=== PATIENT | male | born 1935 | race Caucasian/White ===

== ENCOUNTER 2021-09-23 07:40 | Inpatient (IN) | payer OTHER ==
[~2021-09-23] VITALS: Ht 172.7 cm; Wt 90.7 kg
--- NOTE | ~2021-09-23 | EMS ---
[address] [address] EMS Patient Care Report Name: EVA PHAN Room #: 434-P ADM IN M.R.#: [id number] Admission: 09/23/21 Attend Phys: Flo Dubose MD Discharge: Date of : 34 Report #: [id number] THIS REPORT FOR: //name// Report Transmitted: 09/24/2021 08:36 EMS Care Summary [place], [place]/[facility] Incident [id number] @ 09/23/2021 06:59 Incident Location [address] [address] Patient EVA PHAN Male, 86 Years 1935 Patient Address [address] [place] [address] Chief Complaint Back pain Disposition Transported No Lights/[place] Dispatch Reason Back Pain (Non-Traumatic) Transported To [facility] Narrative M42 arrived on scene to find the patient lying supine on his bed. Patient said sometime last night he back gave out and his pain had been getting worse and worse. Patient denied shortness of breath, cough, fever, or chest pain. Patient was covered in feces and urine. Patient was moved to the cot and secured with seat belts. En route to the hospital no changes in the patient condition occurred. M42 arrived on scene of the hospital and patient care was transferred to the RN. Initial Vitals @07:26P: 63,CO: 3,SpO2: 80, [address] [address] EMS Patient Care Report Name: EVA PHAN Room #: 434-P [facility] IN .R.#: [id number] Admission: 09/23/21 Attend Phys: Flo Dubose MD Discharge: Date of : 34 Report #: [id number] @07:24P: 80,SpO2: 84, @07:24P: 80,R: 16,BP: 156/76,Pain: 0/10,GCS: 15,SpO2: 87,Revised Trauma: 12, @07:28P: 77,R: 16,BP: 148/83,Pain: 0/10,GCS: 15,SpO2: 96,Revised Trauma: 12, Assessments @07:13MENTAL:No Abnormalities,SKIN:No Abnormalities,HEENT:Head/Face: No Abnormalities,Eyes: No Abnormalities,Neck/Airway: No Abnormalities,LUNG SOUNDS:General: No Abnormalities,Left Upper: No Abnormalities,Right Upper: No Abnormalities,Left Lower: No Abnormalities,Right Lower: No Abnormalities,ABDOMEN:General: No Abnormalities,Left Upper: No Abnormalities,Right Upper: No Abnormalities,Left Lower: No Abnormalities,Right Lower: No Abnormalities,PELVIS//GI:No Abnormalities,EXTREMITIES:Left Arm: No Abnormalities,Right Arm: No Abnormalities,Left Leg: No Abnormalities,Right Leg: No Abnormalities,PULSE:NEURO:No Abnormalities,@07:23MENTAL:No Abnormalities,SKIN:No Abnormalities,HEENT:Head/Face: No Abnormalities,Eyes: No Abnormalities,Neck/Airway: No Abnormalities,LUNG SOUNDS:General: No Abnormalities,Left Upper: No Abnormalities,Right Upper: No Abnormalities,Left Lower: No Abnormalities,Right Lower: No Abnormalities,ABDOMEN:General: No Abnormalities,Left Upper: No Abnormalities,Right Upper: No Abnormalities,Left Lower: No Abnormalities,Right Lower: No Abnormalities,PELVIS//GI:No Abnormalities,EXTREMITIES:Left Arm: No Abnormalities,Right Arm: No Abnormalities,Left Leg: No Abnormalities,Right Leg: No Abnormalities,PULSE:NEURO:No Abnormalities, Impression Back Pain Procedures @07:13 ALS Assessment Response: UnchangedSucceeded Timeline 06:57,Call Received 06:57,Dispatch Notified 06:59,Dispatched 07:00,En Route 07:11,On Scene 07:13,At Patient 07:13,ALS Assessment,Response: UnchangedSucceeded, 07:24,BP: / M,PULSE: 80,RR: R,SPO2: 84 Ox,ETCO2: ,BG: ,PAIN: ,GCS: , 07:24,BP: 156/76 M,PULSE: 80,RR: 16 R,SPO2: 87 Ox,ETCO2: ,BG: ,PAIN: 0,GCS: 15, 07:25,Depart Scene 07:26,BP: / M,PULSE: 63,RR: R,SPO2: 80 Ox,ETCO2: ,BG: ,PAIN: ,GCS: , 07:28,BP: 148/83 M,PULSE: 77,RR: 16 R,SPO2: 96 Ox,ETCO2: ,BG: ,PAIN: 0,GCS: 15, 07:45,At Destination 07:57,Call Closed [facility] [address] [place] [address] EMS Patient Care Report Name: EVA PHAN Room #: 434-P [facility] IN M.R.#: [id number] Admission: 09/23/21 Attend Phys: Flo Dubose MD Discharge: Date of : 34 Report #: [id number] Disclaimer v1.1 Copyright 202 [employer] This EMS Care Summary contains data elements from the applicable legal record (which may be displayed differently). It is designed to provide pertinent information for the following purposes: continuity of care, clinical quality, and state data reporting. The complete legal record is available to ED staff and administrators of the receiving hospital in [employer] Patient Tracker. All data is provided "as is."
[~2021-09-23 07:40] MED LIST: AMARYL4 MG PO; AMBIEN 5 MG TABL5 M1 PO; ASPIRIN325 PO; BACTRIM DS TAB1 EACH PO; CALCIUM 500 +1 EAC5 PO; CELEXA10 MG PO; COLACE100 MG PO; CRESTOR10 MG PO; EPIPEN 2-P0.3 MG/0.3 IM; FLECAINIDE ACET50 M1 PO; FLOMAX0.4 MG PO; HUMALOG100 UNIT/1 SUBQ; IRON325 PO; JANUVIA 50 MG T50 M1 PO; LEVEMIR100 UNIT/1; LEVSIN0.125 MG PO; METFORMIN HCL500 MG PO; NEURONTIN 300300 M1 PO; NEURONTIN600 MG PO; NORCO 5-325 TA1 EACH PO; OXYBUTYNIN 5 MG5 M2 PO; SENNA8.6 M1 PO; TRAZODONE HCL50 MG PO
[2021-09-23 07:41] VITALS: BP 125/59
[2021-09-23 08:11] LABS: URINE BILIRUBIN NEGATIVE (Negative); URINE BLOOD 2+ (Negative); URINE CLARITY CLOUDY; URINE COLOR YELLOW; URINE GLUCOSE-RANDOM* NEGATIVE (Negative); URINE KETONES NEGATIVE (Negative); URINE LEUKOCYTES-REFLEX 3+ (Negative); URINE NITRITE-REFLEX POSITIVE (Negative); URINE PROTEIN (DIPSTICK) 2+ (Negative); URINE UROBILINOGEN 0.2 E.U./dl (0.2-1.0)
[2021-09-23 08:26] LABS: BE(vivo) 0 mmol/L (-2 to +3); HCO3 24.5 mmol/L (22.0-26.0); PCO2 39.5 mmHg (35.0-45.0); PO2 83.5 mmHg (80.0-100.0); pH 7.411 (7.360-7.450); sO2 96.4 % (92.0-98.0)
[2021-09-23 08:27] LABS: ABSOLUTE NEUTROPHILS 7.1 thou/uL (1.4-8.2); BASOPHILS 0.3 % (0.0-2.0); EOSINOPHILS 3.5 % (0.0-3.0); HEMATOCRIT 42.8 % (42.0-52.0); LYMPHOCYTES 8.9 % (24.0-44.0); MCH 29.6 pg (26.0-34.0); MCHC 32.6 g/dL (28.0-37.0); MONOCYTES 6.2 % (1.0-8.0); PLATELET COUNT 184 thou/uL (150-400); POLYS 81.1 % (36.0-66.0); RBC 4.71 mil/uL (4.50-6.00); RDW 15.1 % (10.5-14.5); WBC 8.7 thou/uL (4.0-11.0)
[2021-09-23] MEDS ORDERED: JANUMET 50-1,01 EACH PO (08:31)
[2021-09-23] MEDS ORDERED: METOPROLOL SUCC25 M1 PO (08:32)
[2021-09-23] MEDS ORDERED: PREGABALIN100 MG PO (08:33)
[2021-09-23] MEDS ORDERED: MIDODRINE HCL 55 M1 PO (08:33)
[2021-09-23] MEDS ORDERED: ROSUVASTATIN CA20 MG PO (08:33)
[2021-09-23] MEDS ORDERED: TAMSULOSIN HCL0.4 MG PO (08:33)
[2021-09-23 08:43] LABS: BACTERIA-REFLEX >30 Many /HPF (None Seen); CASTS None Seen /LPF (None Seen); CRYSTALS None Seen /LPF (None Seen); SQUAMOUS 0-3 Few /LPF (0-3); URINE WBC-REFLEX >25 Many /HPF (0-5)
[2021-09-23 08:44] LABS: URINE RBC 3-10 Few /HPF (NONE SEEN)
[2021-09-23 08:47] LABS: CALCIUM 8.9 mg/dL (8.5-10.1); CREATININE 1.4 mg/dL (0.7-1.3); POTASSIUM 4.6 mmol/L (3.5-5.1)
[2021-09-23 08:57] LABS: ALBUMIN 2.8 g/dL (3.4-5.0); MAGNESIUM 1.6 mg/dL (1.8-2.4); TOTAL BILIRUBIN 0.6 mg/dL (0.2-1.0); TOTAL PROTEIN 7.1 g/dL (6.4-8.2)
--- NOTE | 2021-09-23 12:05 | EKG ---
[place] [address] [facility] [place] [address] ELECTROCARDIOGRAM REPORT Name: EVA PHAN Room #: 170-9 ADM IN M.R.#: [id number] Admission: 09/23/21 Attend Phys: Flo Dubose MD Discharge: Date of : 33 Report #: [id number] [facility] ED Test Date: 2021-09-23 Test Time: 08:05:15 Pat Name: EVA PHAN Department: Room: 170 Gender: M Certified Massage Therapist: : 1935 Requested By: Charly Guthrie Order Number: [id number] MD: Thomas Irwin Measurements Intervals [place] Rate: 78 P: 21 DE: 198 QRS: -9 QRSD: 110 T: 60 QT: 387 QTc: 441 Interpretive Statements Sinus rhythm Ventricular premature complex Abnormal R-wave progression, early transition No previous ECG available for comparison Electronically Signed On 09-23-2021 12:05:32 ASSISTANT [employer] by Thomas Irwin [email or web address] <ELECTRONICALLY SIGNED> By: Thomas Irwin MD, [facility] 09/23/21 1205 [id number] 4 Thomas Irwin MD, FACC /EPI
[2021-09-23 19:29] VITALS: BP 140/80
[2021-09-23 20:31] VITALS: BP 149/91
--- NOTE | 2021-09-24 02:42 | NUR ---
PT ARRIVED FROM ER @2009 A&OX4 QUINAULT. ADMISSION DONE AND PT ORIENTED TO THE UNIT. IV INTACT AND FLUIDS INFUSING. FOLLEY INTACT FROM THE ER. HX OF OVERACTIVE BLADDER. BSG CHECKED AND INSULIN GIVEN. REDNESS NOTED ON BOTTOM. PT HAD A BM PRIOR TO ARRIVAL. PERICARE PROVIDED. FALL PREC IN PLACE AND CALL IGHT AT REACH WILL CONT TO MONITOR TILL EOS.
[2021-09-24 05:39] LABS: MCH 30.6 pg (26.0-34.0); MCHC 33.8 g/dL (28.0-37.0); MCV 90.6 fL (80.0-100.0); RBC 3.87 mil/uL (4.50-6.00); RDW 14.7 % (10.5-14.5); WBC 7.4 thou/uL (4.0-11.0)
[2021-09-24 05:43] LABS: CALCIUM 8.2 mg/dL (8.5-10.1); CREATININE 1.2 mg/dL (0.7-1.3); POTASSIUM 4.2 mmol/L (3.5-5.1)
[2021-09-24 05:52] LABS: HEMOGLOBIN 11.8 gm/dL (14.0-18.0)
--- NOTE | 2021-09-24 08:30 | NUR ---
86-year-old gentleman who presented with acute confusion. UA done, UTI and complained of dysuria and frequency for the last few days. Chart review. He is a & o to person, place and time, some forgetfulness, pleasant and able to make his needs know. Intro to cm and dcp. Prior to hospital he lives alone, in a senior apartment in [facility]. Ground floor , no stairs but there is a long hallway to walk. Uses a walker. No longer drives. Has community based services 5 days week for few hours and then on Thursday and thursday 4 hrs per day. Nurse comes weekly and sets up pill box for the week. Been to skilled rehab in the past but would like to go home at [place] per priyank. He unable to recall who he has had in past for home health. Will cont following as needed.
[2021-09-24 08:31] VITALS: BP 139/74
--- NOTE | 2021-09-24 10:11 | NUR ---
A/O X 4, VERY [place] BILATERAL EARS, BEDBOUND, STATES HES WHEELCHAIR BOUND AT HOME, RIGHT AC IV WITH 1/2 NS @ 75 MLS/HR, GILL-CLOUDY, MAYCOL URINE, REDNESS ON BUTTOCKS, BACK PAIN NOTED-TYLENOL GIVEN, TOENAILS ARE DIRTY WITH A BROWN SUBSTANCE. STATES HE HAS A CAREGIVER AT HOME THAT COMES DAILY.
[2021-09-24 16:27] VITALS: BP 129/93; BP 163/93
--- NOTE | 2021-09-24 17:04 | NUR ---
Facesheet address incorrect. FRANCISCA Valera confirmed his apt is at [address], [address], [place] [address] and cell number [phone]. She indicates she is concerned about his returning directly to his apt and that with the HBCS he currently has he has barely been managing. [facility] and she will talk with him tonight when visiting. referral faxed to [facility] as a plan B. Pt to discuss with his princess/francisca tonight as he wants to try to go back to his apt but acknowledges recent falls and weakness. Will reassess in the am after therapy but SNF may be good option if pt is willing. SNF referral faxed and called to [facility] and they will check ins in the am. Their admission liason indicates that beds are tight. Will follow.
[2021-09-24 19:44] VITALS: BP 124/76
--- NOTE | 2021-09-25 02:26 | NUR ---
ASSESSED AT START OF SHIFT. PT RESTING IN BED. EVENING MEDS GIVEN AND PT ASHA IT WELL. IV INTACT AND FLUIDS INFUSING. FOLLEY INTACT TO D/D. FALL PREC IN PLACE AND CALL LIGHT AT REACH WILL CONT TO MONITOR.
[2021-09-25 05:13] VITALS: BP 112/69
[2021-09-25] MEDS ORDERED: KEFLEX250 MG PO (09:50)
--- NOTE | 2021-09-25 11:09 | NUR ---
A/O X 3. ROOM AIR. ONE ASSIST WITH WALKER. RIGHT AC IV DRESSING DRY, CLEAN, AND INTACT WITH 1/2 NS INFUSING @ 75MLS/HR. GILL IN PLACE-MAYCOL URINE NOTED. BACK PAIN, TYLENOL GIVEN.
--- NOTE | 2021-09-25 13:01 | NUR ---
PT's HUMBLE Valera here and talked with pt at bedside. Both agreeable to snf as pt is not strong enough to go home indep at this time. He has cargivers for 6hrs a day but he could not saftey get to the bathroom or kitchen on his own at this time. Pt declined therapy tx this am thinking he was going home today. PT alerted to dc plan and needs and they will reattempt to see him this afternoon. Clinical updated faxed to Marleen in admissions at [facility] and she has accepted the pt and will submit for ins auth today for a bed on Monday 09/17. Unit Rn will need to call her Thursday to confirm auth and fax her dc orders. If she is not able to arrange for w/c van ride, a ride can be vouched per [employer]. [facility] phone [phone], fax number [phone], [employer] [phone]. Chart copy will be needed. 124C on chart to be sent with the pt and a copy was faxed to admissions along with his updated today. Care team and the attending updated.
[2021-09-25 15:37] VITALS: BP 104/68
[2021-09-25 19:46] VITALS: BP 145/86
--- NOTE | 2021-09-26 04:01 | NUR ---
PT IS A/O X2 AND IS UP WITH ASSISTANCE X1 USING WALKER TO THE BSC. IMPULSIVE AND RESTLESS. C/O ABDOMINAL PAIN DUE TO CONSTIPATION. PRN MIRALAX GIVEN PRESCRIBED. PT HAD 2 SMALL BOWEL MOVEMENTS. GILL IN PLACE DRAINING APPROPRIATELY. DRSG TO BUTTOCK C/D/I. SITTER IN PLACE NEEDED FOR IMPULSIVENESS AND SAFETY. FALL PRECAUTIONS IN PLACE, CALL LIGHT IS WITHIN REACH.
--- NOTE | 2021-09-26 04:06 | NUR ---
PT IS A/O X3 WITH SOME FORGETFULNESS AND IS UP WITH ASSITANCE. PLEASANT AND COOPERATIVE WITH ALL CARES. ROOM AIR. VSS. AFEBRILE. MEDICATIONS GIVEN PER DEC. RBIDGET IN PLACE AND DRAINING APPROPRIATELY. NO BM THIS SHIFT. HS BS ELEVATED. INSULIN GIVEN DIRECTED. C/O PAIN. PRN TYLENOL GIVEN DIRECTED. CALLS OUT APPROPRIATELY FOR ASSISTANCE. FALL PRECAUTIONS IN PLACE, CALL LIGHT IS WITHIN REACH. WILL CONTINUE TO MONITOR.
[2021-09-26 07:11] VITALS: BP 158/89
--- NOTE | 2021-09-26 09:37 | NUR ---
ASSUMED PT CARE THIS AM. PT IS ALERT & ORIENTED X2 TO SELF AND SITUATION. PT HAS IV SITE ON RFA SALINE LOCKED. PT IS ON ROOM AIR. PT IS ACCUCHECK ACHS. PT HAS GILL CATH IN PLACE. PT TOLERATED MEDICATION AND DIET WELL. STOPPED IV FLUIDS PER DR ORDERED. DC ON THURSDAY PER NIGHT NURSE. PT ON THE BED WATCHING TV, BED ON THE LOWEST POSITION, SIDE RAILS UP, CALL LIGHT WITHIN REACH. FOLLOW POC.
[2021-09-26 16:59] VITALS: BP 120/71
[2021-09-26 20:46] VITALS: BP 120/85
--- NOTE | 2021-09-27 03:16 | NUR ---
PT IS A/O X3 WITH SOME FORGETFULNESS AND IS UP WITH ASSISTANCE. ROOM AIR. VSS AFEBRILE. GILL IN PLACE DRAINING APPROPRIATELY. NO BM THIS SHIFT. MEDICATIONS GIVEN WHOLE WITH WATER. HS INSULIN GIVEN DIRECTED. PT IS PLEASANT AND COOPERATIVE. C/O BACK PAIN. PRN PAIN MEDICATION GIVEN DIRECTED. FALL PRECAUTIONS IN PLACE, CALL LIGHT IS WITHIN REACH.
[2021-09-27 07:31] VITALS: BP 140/89
[2021-09-27 09:17] VITALS: BP 140/89
--- NOTE | 2021-09-27 12:14 | NUR ---
PT DISCHARGING TODAY TO [facility] FAXED DC ORDERS/SUMMARY TO FACILITY RECEIVED CONFIRMATION SPOKE WITH KENDRICK FROM FACILITY SHE ARRANGED WC VAN FOR 1300 TODAY. NOTIFIED PT'S HUMBLE JAMES AND DC AND TIME OF TRANSPORT. UNIT NOTIFIED AND CHART COPY PER US. RN TO CALL REPORT TO FACILITY [phone].
== END 2021-09-27 13:15 | DRG 682 ==
LOC: ER 07:40 → 4S 09:40 → EROBS 09:40 → 4S 19:31
PROVIDERS: Emergency Medicine; ADMIT Hospitalist; ATTEND Hospitalist
DX: N17.9 Acute kidney failure, unspecified (principal); G93.41 Metabolic encephalopathy; N39.0 Urinary tract infection, site not specified; E11.51 Type 2 diabetes mellitus with diabetic peripheral angiopathy without gangrene; R41.0 Disorientation, unspecified; M19.90 Unspecified osteoarthritis, unspecified site; E86.0 Dehydration; Z60.2 Problems related to living alone; R53.81 Other malaise; G47.00 Insomnia, unspecified; Z20.822 Contact with and (suspected) exposure to COVID-19; Z23 Encounter for immunization; Z85.46 Personal history of malignant neoplasm of prostate; Z85.51 Personal history of malignant neoplasm of bladder; Z79.82 Long term (current) use of aspirin; Z79.899 Other long term (current) drug therapy
CPT/HCPCS: 10195